=== PATIENT | male | born 1995 | race Two or more races ===

== ENCOUNTER 2024-08-01 14:43 | Emergency (ER) | payer OTHER ==
[2024-08-01 14:49] VITALS: BP 111/66; PULSE 76; RESP 20; TEMP 98.3; BMI 28.1
[2024-08-01] MEDS ORDERED: KETOROLAC TROMETHAMINE 30 MG/1 ML VIAL ONE (15:20)
[2024-08-01] MEDS ORDERED: oxyCODONE HCL 5 MG TABLET ONE (15:20)
[2024-08-01] MEDS: oxyCODONE HCL 5 MG TABLET PO ONE (15:25)
[2024-08-01] MEDS: KETOROLAC TROMETHAMINE 30 MG/1 ML VIAL IM ONE (15:25)
== END 2024-08-01 15:29 | disposition home or self-care (01) ==
LOC: JERFT 14:43
PROC: 3E0233Z Introduction of Anti-inflammatory into Muscle, Percutaneous Approach (ICD-10-PCS; principal; 2024-08-01)
DX: S02.5XXA Fracture of tooth (traumatic), initial encounter for closed fracture (principal); X58.XXXA Exposure to other specified factors, initial encounter
CPT/HCPCS: 99284-25